=== PATIENT | male | born 1975 | race Caucasian/White ===

== ENCOUNTER 2017-11-03 20:16 | Observation (INO) | payer BC, MEDICAID ==
[2017-11-03] MEDS ORDERED: ASPIRIN 325 MG TABLET PO ONE (20:28)
[2017-11-03] MEDS ORDERED: ASPIRIN 81 MG CHEWABLE TABLET PO ONE (20:32)
[2017-11-03 20:36] LABS: BASO % 0.4 % (0-6); GRAN % 61.8 % (47-80); HEMATOCRIT 40.1 % (42.0-52.0); HEMOGLOBIN 13.7 gm/dl (14.0-18.0); LYMPH % 27.3 % (16-45); MEAN CELL VOLUME 90.9 fl (81-97); MEAN CORPUSCULAR HGB CONC 34.2 g/dl (32-36); MEAN PLATELET VOLUME 9.9 fl (7.4-10.4); MONO % 7.5 % (0-9); PLATELET COUNT 235 K/uL (130-400); RED BLOOD COUNT 4.41 M/uL (4.40-5.70); RED CELL DISTRIBUTION WIDTH 12.6 % (11.5-14.5)
--- NOTE | 2017-11-03 20:39 | Emergency Department Record ---
History of Present Illness - General Chief Complaint: Chest Pain Stated Complaint: CHEST PAIN,LT ARM PAIN Time Seen by Provider: 11/03/17 20:28 Source: Patient Mode of Arrival: Ambulatory Limitations: No limitations - History of Present Illness Initial Comments: 42 yo male presents with presents with episodes of palpitations and chest pain. The initial onset was Friday with heart racing for 3-=45 minutes. Since then he has had a few episodes of substernal chest pain that comes and goes. Lasting about 30 minutes with some left arm radiation. He is currently pain free. He does not have any known histroy of CAD. His dad is still alive but had CABG in his early 40's. The patient is a smoker as well. No other abrupt changes in his health. He does feel some shortness of breath with exertion such as stair climbing but no chest pain with stair climbing. MD Complaint: Chest pain -: Days(s) (4) Onset: During rest Pain Location: Substernal Pain Radiation: LUE Severity: Mild, Moderate Quality: Aching Consistency: Intermittent Improves With: Nothing Worsens With: Nothing Anginal Symptoms: Diaphoresis Treatments Prior to Arrival: None - Related Data Home Medications Medication Instructions Recorded Confirmed Last Taken Citalopram Hydrobromide 40 mg PO DAILY 11/03/17 11/03/17 Unknown [Citalopram HBr] Hydrocodone/Acetaminophen 1 tab PO Q6H PRN 11/03/17 11/03/17 Unknown [Hydrocodone/Acetaminophen 5mg/325mg] Allergies Allergy/AdvReac Type Severity Reaction Status Date / Time No Known Drug Allergies Allergy Verified 11/03/17 20:24 Review of Systems Constitutional: Denies: Chills, Fever, Malaise, Weakness Eyes: Denies: Eye discharge, Eye pain, Photophobia ENT: Denies: Congestion, Throat pain Respiratory: Denies: Cough, Dyspnea, Hemoptysis, Stridor, Wheezes Cardiovascular: Reports: Arrhythmia, Chest pain, Dyspnea on exertion, Palpitations. Denies: Edema, Murmurs, Orthopnea, Paroxysmal nocturnal dyspnea, Rheumatic Fever, Syncope Endocrine: Denies: Fatigue Gastrointestinal: Denies: Abdominal pain, Diarrhea, Nausea, Vomiting Genitourinary: Denies: Dysuria, Frequency, Hematuria Musculoskeletal: Denies: Arthralgia, Back pain, Joint swelling, Myalgia Skin: Denies: Bruising, Change in color, Rash Neurological: Denies: Confusion, Headache, Numbness, Weakness Psychiatric: Denies: Anxiety Hematological/Lymphatic: Denies: Blood Clots, Easy bleeding, Easy bruising, Swollen glands Physical Exam - General General Appearance: Alert, Oriented x3, Cooperative, No acute distress Limitations: No limitations - Head Head exam: Atraumatic, Normocephalic, Normal inspection - Eye Eye exam: Normal appearance. negative: Conjunctival injection, Periorbital swelling, Scleral icterus - ENT ENT exam: Normal exam, Mucous membranes moist Ear exam: Normal external inspection Nasal Exam: Normal inspection Mouth exam: Normal external inspection Teeth exam: Normal inspection - Neck Neck exam: Normal inspection, Full ROM. negative: Tenderness - Respiratory Respiratory exam: Normal lung sounds bilaterally. negative: Respiratory distress - Cardiovascular Cardiovascular Exam: Regular rate, Normal rhythm, Normal heart sounds - GI/Abdominal GI/Abdominal exam: Soft. negative: Tenderness - Rectal Rectal exam: Deferred - exam: Deferred - Extremities Extremities exam: Normal inspection, Full ROM, Normal capillary refill. negative: Pedal edema, Tenderness - Back Back exam: Reports: Normal inspection, Full ROM. Denies: CVA tenderness (R), CVA tenderness (L), Muscle spasm, Rash noted, Tenderness - Neurological Neurological exam: Alert, Normal gait, Oriented X3 - Psychiatric Psychiatric exam: Normal affect, Normal mood. negative: Agitated, Anxious - Skin Skin exam: Dry, Intact, Normal color, Warm Course - Reevaluation(s) Reevaluation #1: 11/03/17 20:29 EKG 20:21 NSR rate is 87, intervals normal, axis no acute changes, ST normal. No old. 11/03/17 20:58 No acute changes on the CBC, CMP, or Troponin. 11/03/17 21:47 The CXR is negative Given his family history, smoking and recurring chest pain since Friday I recommend OBV with serial enzymes and cardiology consultation Medical Decision Making - Lab Data Result diagrams: 11/03/17 20:30 11/03/17 20:30 Disposition Disposition: Admit Clinical Impression: Chest pain Qualifiers: Chest pain type: unspecified Qualified Code(s): R07.9 - Chest pain, unspecified Disposition: Still a Patient at [facility] Decision to Admit: Admit from ER Decision to Admit Date: 11/03/17 Decision to Admit Time: 21:30 Condition: (1) Good Forms: Patient Portal Access Time of Disposition: 21:30 Quality - Quality Measures Quality Measures: N/A - Blood Pressure Screening Does Patient Have Any of the Following: No Blood Pressure Classification: Hypertensive Reading Systolic Measurement: 156 Diastolic Measurement: 94 Screening for High Blood Pressure: < Pre-Hypertensive BP, F/U Documented > [ G8950] Pre-Hypertensive Follow-up Interventions: Referral to alternative/primary care provider.
[2017-11-03 20:48] LABS: INR 0.98; PARTIAL THROMBOPLASTIN TIME 26.8 SECONDS (24.5-39.1); PROTHROMBIN TIME (PATIENT) 10.6 SECONDS (9.5-12.1)
[2017-11-03 20:54] LABS: BLOOD UREA NITROGEN 18 mg/dL (6-20); CREATINE PHOSPHOKINASE 163 U/L (39-308); CREATININE 0.9 mg/dL (0.7-1.2); EST GLOMERULAR FILTRATION RATE > 60 mL/min; GLUCOSE,RANDOM 111 mg/dL (74-109)
[2017-11-03 20:56] LABS: CKMB 1.9 ng/mL (<6.73)
[2017-11-03] MEDS ORDERED: ACETAMINOPHEN 500 MG TABLET PO PRN (23:19)
[2017-11-03] MEDS ORDERED: HYDROCODONE/APAP 5/325MG TABLET PO PRN (23:20)
--- NOTE | 2017-11-04 07:09 | RADIOLOGY REPORT ---
EXAM: CHEST, TWO VIEWS HISTORY: CHEST PAIN. TECHNIQUE: Frontal and lateral views of the chest were obtained. Comparison: None. FINDINGS: The heart size is normal. The lungs are clear. No pneumothorax. IMPRESSION: NEGATIVE CHEST EXAMINATION. JOB NUMBER: [id number] MTDD
--- NOTE | 2017-11-04 08:35 | History & Physical ---
<Cleo Gonzales - Last Filed: 11/04/17 11:09> History of Present Illness - Date of Service Date of Service for History & Physical: 11/04/17 Review of Systems Cardiovascular: Reports: Chest pain, Palpitations Skin: Denies: Change in color H&P Meds/Allergies - Allergies Allergies: Allergies Allergy/AdvReac Type Severity Reaction Status Date / Time No Known Drug Allergies Allergy Verified 11/03/17 20:24 - Home Medications Home Medications Medication Instructions Recorded Confirmed Last Taken Citalopram Hydrobromide 40 mg PO DAILY 11/03/17 11/03/17 Unknown [Citalopram HBr] Hydrocodone/Acetaminophen 1 tab PO Q6H PRN 11/03/17 11/03/17 Unknown [Hydrocodone/Acetaminophen 5mg/325mg] - Active Medications Active Medications: Current Medications Acetaminophen (Tylenol 500mg Tab) 1,000 mg PO Q6H PRN PRN Reason: PAIN/TEMP Hydrocodone Bitart/Acetaminophen (Pemaquid 5mg/325mg) 1 each PO Q6H PRN PRN Reason: Pain - General Enoxaparin Sodium (Lovenox) 40 mg SQ QHS JOANNE Physical Exam - Vital Signs Vital Signs: Vital Signs - Last 24 Hrs Temp Pulse Pulse Pulse Resp BP BP 11/04/17 08:00 97.9 F 60 14 103/67 11/03/17 23:05 70 18 11/03/17 23:00 98.0 F 65 18 129/77 11/03/17 22:50 98.5 F 67 20 131/79 Pulse Ox 11/04/17 08:00 97 11/03/17 23:05 11/03/17 23:00 96 11/03/17 22:50 98 Results - Labs Result Diagrams: 11/03/17 20:30 11/03/17 20:30 Labs Last 24 Hours: Laboratory Results - last 24 hr 11/04/17 06:10 Troponin T < 0.010 - Imaging and Cardiology Chest x-ray Status: Report reviewed (negative) VTE H&P Assessment - Risk for VTE Risk Level: Moderate <Yadi Land - Last Filed: 11/04/17 15:00> History of Present Illness - Date of Service Date of Service for History & Physical: 11/04/17 - History of Present Illness Admitting Diagnosis: Chest Pain History of Present Illness: Abundio is a 42 year-old male who is admitted as observation status for chest pain. His history includes: smoker, chronic back pain, and depression. His father has a history of CAD with CABG in his early 40s. He went to the ED the evening of 11/03/17 because he had been experiencing episodes of palpitations, chest pain, and left arm pain since 10/31/17. He stated that his initial onset was 10/31 with heart racing for about 45 minutes. Over the next two days, he had a few episodes of intermittent substernal chest pain with radiation to his left arm that lasted about 30 minutes. He described the pain as sharp left-sided, substernal, a 10/10 at it' s worst. The pain did occur at rest and he denied shortness of breath. He has had no abrupt changes in his health, no recent illness. In the ED, his vital signs were stable, his CBC, CMP were unremarkable, and his troponin did not show any acute change. His EKG showed NSR with normal ST and his chest x-ray was negative. He was admitted for observation for chest pain, cardiology consult, placed on continuous telemetry and monitoring of serial cardiac enzymes. Cardiology consult was ordered based on pt's symptom of left-sided chest pain, and risk factor of smoking and family history of CAD. 11/04/17: Pt. is resting comfortably in bed. He denies pain at the present time. His vital signs this morning were within normal limits. Plan to continue telemetry monitoring, last troponin ordered for 1400, and cardiology consult. Potential discharge this afternoon. Travel Screening - Travel/Exposure Within Last 30 Days Have you traveled within the last 30 days?: No - Travel/Exposure Within Last Year Have you traveled outside the [place] in the last year?: No - Additonal Travel Details Have you been exposed to anyone with a communicable illness?: No Review of Systems Constitutional: Denies: Chills, Fever, Malaise, Weakness Eyes: Denies: Eye discharge, Eye pain, Photophobia ENT: Denies: Congestion, Throat pain Respiratory: Denies: Cough, Dyspnea, Hemoptysis, Stridor, Wheezes Cardiovascular: Reports: Arrhythmia, Chest pain, Dyspnea on exertion, Palpitations. Denies: Edema, Murmurs, Orthopnea, Paroxysmal nocturnal dyspnea, Rheumatic Fever, Syncope Endocrine: Denies: Fatigue Gastrointestinal: Denies: Abdominal pain, Diarrhea, Nausea, Vomiting Genitourinary: Denies: Dysuria, Frequency, Hematuria Musculoskeletal: Denies: Arthralgia, Back pain, Joint swelling, Myalgia Skin: Denies: Bruising, Change in color, Rash Neurological: Denies: Confusion, Headache, Numbness, Weakness Psychiatric: Denies: Anxiety Hematological/Lymphatic: Denies: Blood Clots, Easy bleeding, Easy bruising, Swollen glands Past Medical History - SOCIAL HISTORY Smoking Status: Current every day smoker Alcohol Use: Occasional Drug Use: None - RESPIRATORY Hx Respiratory Disorders: No - CARDIOVASCULAR Hx Cardio Disorders: No - NEURO Hx Neuro Disorders: No - GI Hx GI Disorders: No - Hx Genitourinary Disorders: No - ENDOCRINE Hx Endocrine Disorders: No - MUSCULOSKELETAL Hx Back Injury: Yes (chronic low back pain) - PSYCH Hx Psych Problems: Yes Hx Depression: Yes - HEMATOLOGY/ONCOLOGY Hx Hematology/Oncology Disorders: No Family Medical History Any Significant Family History?: Yes Hx Cancer: Grandparents Hx Diabetes: Grandparents Hx Heart Disease: Father (CABG) Hx HTN: Father, Mother H&P Meds/Allergies - Active Medications Active Medications: Current Medications Acetaminophen (Tylenol 500mg Tab) 1,000 mg PO Q6H PRN PRN Reason: PAIN/TEMP Hydrocodone Bitart/Acetaminophen ([place]quid 5mg/325mg) 1 each PO Q6H PRN PRN Reason: Pain - General Physical Exam - Vital Signs Vital Signs: Vital Signs - Last 24 Hrs Temp Pulse Pulse Pulse Resp BP BP 11/04/17 08:00 97.9 F 60 14 103/67 11/03/17 23:05 70 18 11/03/17 23:00 98.0 F 65 18 129/77 11/03/17 22:50 98.5 F 67 20 131/79 Pulse Ox 11/04/17 08:00 97 11/03/17 23:05 11/03/17 23:00 96 11/03/17 22:50 98 - General General Appearance: Alert, Oriented x3, Cooperative, No acute distress Limitations: No limitations - Head Head exam: Atraumatic, Normocephalic, Normal inspection - Eye Eye exam: Normal appearance. negative: Conjunctival injection, Periorbital swelling, Scleral icterus - ENT ENT exam: Normal exam, Mucous membranes moist Ear exam: Normal external inspection Nasal Exam: Normal inspection Mouth exam: Normal external inspection Teeth exam: Normal inspection - Neck Neck exam: Normal inspection, Full ROM. negative: Tenderness - Respiratory Respiratory exam: Normal lung sounds bilaterally. negative: Respiratory distress - Cardiovascular Cardiovascular Exam: Regular rate, Normal rhythm, Normal heart sounds Peripheral Pulses: 2+: Radial (R), Radial (L) - GI/Abdominal GI/Abdominal exam: Soft. negative: Tenderness - Rectal Rectal exam: Deferred - exam: Deferred - Extremities Extremities exam: Normal inspection, Full ROM, Normal capillary refill. negative: Pedal edema, Tenderness - Back Back exam: Reports: Normal inspection, Full ROM. Denies: CVA tenderness (R), CVA tenderness (L), Muscle spasm, Rash noted, Tenderness - Neurological Neurological exam: Alert, Normal gait, Oriented X3 - Psychiatric Psychiatric exam: Normal affect, Normal mood. negative: Agitated, Anxious - Skin Skin exam: Dry, Intact, Normal color, Warm Results - Labs Result Diagrams: 11/03/17 20:30 11/03/17 20:30 Labs Last 24 Hours: Laboratory Results - last 24 hr 11/04/17 06:10 Troponin T < 0.010 VTE H&P Assessment - Risk for VTE Risk for VTE: Yes Risk Level: Moderate Risk Assessment Date: 11/04/17 (Smoker) Risk Assessment Time: 08:33 VTE Orders Placed or Will Be Placed: Yes Plan - Detailed Diagnosis and Plan (1) Chest pain Current Visit: Yes Status: Acute Qualifiers: Chest pain type: unspecified Qualified Code(s): R07.9 - Chest pain, unspecified Base Code: R07.9 - CHEST PAIN, UNSPECIFIED Comment: 11/04/17- Pt. currently denies chest pain. Continue telemetry, serial troponins, cardiac diet, saline lock, cardiology consult today. First 2 troponins were within normal range with no change, final troponin ordered for 1400 today. EKG in ED showed NSR with no ST elevation and CXR was negative. CMP and CBC unremarkable. PRN Pemaquid 5/325 PO q6h or Tylenol 1,000mg PO q6h as needed for pain. Plan to discharge today if no acute changes. (2) DVT prophylaxis Current Visit: Yes Status: Acute Base Code: [id number] - Comment: 11/04/17- 40 mg Lovenox SC daily ordered if stay greater than 24 hours. Continue activity as tolerated. (3) Full code status Current Visit: Yes Status: Acute Base Code: Z78.9 - OTHER SPECIFIED HEALTH STATUS Comment: 10/1917- Pt. is full code
--- NOTE | 2017-11-04 15:29 | Discharge Summary ---
Providers Discharge Summary Date: 11/04/17 Date of admission: 11/03/17 22:45 Expected Date of Discharge: 11/04/17 (Pt. left AMA) Attending physician: Andry Shaver Physical Exam - Vital Signs Vital Signs: Vital Signs - Last 24 Hrs Temp Pulse Pulse Pulse Resp BP BP 11/04/17 09:00 93 H 11/04/17 08:00 97.9 F 60 14 103/67 11/03/17 23:05 70 18 11/03/17 23:00 98.0 F 65 18 129/77 11/03/17 22:50 98.5 F 67 20 131/79 Pulse Ox 11/04/17 09:00 11/04/17 08:00 97 11/03/17 23:05 11/03/17 23:00 96 11/03/17 22:50 98 - General General Appearance: Alert, Oriented x3, Cooperative, No acute distress Limitations: No limitations - Head Head exam: Atraumatic, Normocephalic, Normal inspection - Eye Eye exam: Normal appearance. negative: Conjunctival injection, Periorbital swelling, Scleral icterus - ENT ENT exam: Normal exam, Mucous membranes moist Ear exam: Normal external inspection Nasal Exam: Normal inspection Mouth exam: Normal external inspection Teeth exam: Normal inspection - Neck Neck exam: Normal inspection, Full ROM. negative: Tenderness - Respiratory Respiratory exam: Normal lung sounds bilaterally. negative: Respiratory distress - Cardiovascular Cardiovascular Exam: Regular rate, Normal rhythm, Normal heart sounds Peripheral Pulses: 2+: Radial (R), Radial (L) - GI/Abdominal GI/Abdominal exam: Soft. negative: Tenderness - Rectal Rectal exam: Deferred - exam: Deferred - Extremities Extremities exam: Normal inspection, Full ROM, Normal capillary refill. negative: Pedal edema, Tenderness - Back Back exam: Reports: Normal inspection, Full ROM. Denies: CVA tenderness (R), CVA tenderness (L), Muscle spasm, Rash noted, Tenderness - Neurological Neurological exam: Alert, Normal gait, Oriented X3 - Psychiatric Psychiatric exam: Normal affect, Normal mood. negative: Agitated, Anxious - Skin Skin exam: Dry, Intact, Normal color, Warm Hospitalization - Hospitalization Admission Diagnosis: Chest Pain - Problem List/Discharge Diagnosis (1) Chest pain Status: Acute Discharge Diagnosis: Chest pain type: unspecified Qualified Code(s): R07.9 - Chest pain, unspecified Base Code: R07.9 - CHEST PAIN, UNSPECIFIED Comment: 11/04/17- Pt. signed out AMA, he left before provider was able to speak with him. We will contact pt. to see if we can get him set up for an OP cardiology follow up. All 3 troponin enzymes were drawn prior to pt. leaving and did not show any change/elevation. (2) DVT prophylaxis Status: Acute Base Code: [id number] - Comment: 11/04/17- 40 mg Lovenox SC daily ordered if stay greater than 24 hours. Continue activity as tolerated. (3) Full code status Status: Acute Base Code: Z78.9 - OTHER SPECIFIED HEALTH STATUS Comment: 1916- Pt. is full code - Disposition Pt. left AMA prior to cardiology consult. His final troponin lab was completed and did not show any elevation or change. [facility] call to set up outpatient cardiology appointment. - Hospitalization Course Disposition: Against Medical Advice Hospital Course: Abundio is a 42 year-old male who is admitted as observation status for chest pain. His history includes: smoker, chronic back pain, and depression. His father has a history of CAD with CABG in his early 40s. He went to the ED the evening of 11/03/17 because he had been experiencing episodes of palpitations, chest pain, and left arm pain since 10/31/17. He stated that his initial onset was 10/31 with heart racing for about 45 minutes. Over the next two days, he had a few episodes of intermittent substernal chest pain with radiation to his left arm that lasted about 30 minutes. He described the pain as sharp left-sided, substernal, a 10/10 at it' s worst. The pain did occur at rest and he denied shortness of breath. He has had no abrupt changes in his health, no recent illness. In the ED, his vital signs were stable, his CBC, CMP were unremarkable, and his troponin did not show any acute change. His EKG showed NSR with normal ST and his chest x-ray was negative. He was admitted for observation for chest pain, cardiology consult, placed on continuous telemetry and monitoring of serial cardiac enzymes. Cardiology consult was ordered based on pt's symptom of left-sided chest pain, and risk factor of smoking and family history of CAD. 11/04/17 0900: Pt. is resting comfortably in bed. He denies pain at the present time. His vital signs this morning were within normal limits. Plan to continue telemetry monitoring, last troponin ordered for 1400, and cardiology consult. Potential discharge this afternoon. 11/04/17 1500: Pt. left AMA prior to cardiology consult and before provider could see him. Per nursing staff, he left because he was not allowed to go outside to smoke. His last troponin was drawn and did not show any change/ elevation. Plan to call pt. tomorrow and set up outpatient cardiology consult. Condition at Discharge: (1) Good Discharge Diagnosis: Chest Pain VTE Discharge VTE Reason For No Overlap Therapy: Not Indicated (Pt. left AMA prior to starting treatment) Discharge Medications - Discharge Medications Home Medications: Ambulatory Orders Citalopram Hydrobromide [Citalopram HBr] 40 mg PO DAILY 11/03/17 [Last Taken Unknown] Hydrocodone/Acetaminophen [Hydrocodone/Acetaminophen 5mg/325mg] 1 tab PO Q6H PRN 11/03/17 [Last Taken Unknown] Discharge Plan - Discharge Instructions Activity at Discharge: Resume Usual Activities As Tolerated Diet at Discharge: Regular Diet Quality Measures - Quality Measures Quality Measures: Documentation of Current Medications in Medical Record, Screening for High Blood Pressure and F/U Documented - Current Medications Quality Measure: Measure #130: Documentation of Current Medications Documentation of Current Medications: <Current Medications Documented/Reviewed> [G8427] - Blood Pressure Screening Quality Measure: Screening for High Blood Pressure and Follow-Up Documented Does Patient Have Any of the Following: No Blood Pressure Classification: Pre-Hypertensive BP Reading Systolic Measurement: 131 Diastolic Measurement: 79 Screening for High Blood Pressure: < Pre-Hypertensive BP, F/U Documented > [ G8950] Pre-Hypertensive Follow-up Interventions: Referral to alternative/primary care provider. - Elder Abuse Suspicion Index EASI Reference Information: Ej JULES, Ena C, Lyssa D, Inder Quesada.Development and validation of a tool to assist physicians identification of elder abuse: The Elder Abuse Suspicion Index (EASI ). Journal of Elder Abuse and Neglect, 2008; 20 (3): 276-300.
[2017-11-05] MEDS ORDERED: ENOXAPARIN 40 MG/0.4 ML SYR SQ SCH (22:00)
== END 2017-11-04 14:40 | disposition left against medical advice (07) ==
LOC: ER 20:16 → MEDSURG 22:45
PROVIDERS: ADMIT Internal Medicine; ATTEND Internal Medicine
DX: R07.9 Chest pain, unspecified (principal); Z78.9 Other specified health status; F17.210 Nicotine dependence, cigarettes, uncomplicated; M54.9 Dorsalgia, unspecified
CPT/HCPCS: 71020; 80048; 82550; 82553; 84484; 85025; 85610; 85730; 93005; 93010; 99220; 99285

== ENCOUNTER 2018-08-17 22:14 | Emergency (ER) | payer SELFPAY ==
[2018-08-17] MEDS ORDERED: ACETAMINOPHEN 1,000 MG/100 ML BTL IVPB ONE (22:48)
--- NOTE | 2018-08-17 22:53 | Emergency Department Record ---
History of Present Illness - General Chief Complaint: Neck Injury/Pain Stated Complaint: RT SIDE FACE AND NECK PAIN Time Seen by Provider: 08/17/18 22:48 Source: Patient Mode of Arrival: Ambulatory Limitations: No limitations - History of Present Illness Initial Comments: 43 yo male presents to ED for evaluation of right sided pain to the submandibular region that radiates up to the right ear. Patient denies any dental pain, ear pain, fevers, chills, or recent illness. Patient denies trauma to the area, and denies swelling symptoms. Patient reports that his symptoms have been present for 2-3 weeks, worsening. Patient denies health problems other than chronic back pain. MD Complaint: Neck pain Onset/Timin -: Week(s) Place: Home Severity: Moderate Severity scale (1-10): 8 Quality: Aching, Dull Consistency: Constant Improves With: None Worsens With: None Associated Symptoms: None Treatments Prior to Arrival: Prescription pain med - Related Data Allergies Allergy/AdvReac Type Severity Reaction Status Date / Time No Known Drug Allergies Allergy Verified 08/17/18 22:41 Travel Screening - Travel/Exposure Within Last 30 Days Have you traveled within the last 30 days?: No - Travel/Exposure Within Last Year Have you traveled outside the [place] in the last year?: No - Additonal Travel Details Have you been exposed to anyone with a communicable illness?: No - Travel Symptoms Symptom Screening: None Review of Systems Constitutional: Denies: Chills, Fever, Malaise, Night sweats Eyes: Denies: Eye discharge, Eye pain ENT: Denies: Congestion, Ear pain, Epistaxis Respiratory: Denies: Cough, Dyspnea Cardiovascular: Denies: Chest pain, Dyspnea on exertion Endocrine: Denies: Fatigue, Heat or cold intolerance Gastrointestinal: Denies: Abdominal pain, Nausea, Vomiting Genitourinary: Denies: Incontinence, Retention Musculoskeletal: Reports: Neck pain. Denies: Arthralgia, Back pain Skin: Denies: Bruising, Change in color, Change in hair/nails Neurological: Denies: Abnormal gait, Confusion, Headache, Seizure Psychiatric: Denies: Anxiety Hematological/Lymphatic: Denies: Anemia, Blood Clots Past Medical History - SOCIAL HISTORY Smoking Status: Current every day smoker Alcohol Use: Occasional Alcohol Use Comment: once a week Drug Use: None - RESPIRATORY Hx Respiratory Disorders: No - CARDIOVASCULAR Hx Cardio Disorders: No - NEURO Hx Neuro Disorders: No - GI Hx GI Disorders: No - Hx Genitourinary Disorders: No - ENDOCRINE Hx Endocrine Disorders: No - MUSCULOSKELETAL Hx Musculoskeletal Disorders: No Hx Back Injury: Yes (chronic low back pain) - PSYCH Hx Psych Problems: Yes Hx Depression: Yes - HEMATOLOGY/ONCOLOGY Hx Hematology/Oncology Disorders: No Family Medical History Any Significant Family History?: No Hx Cancer: Grandparents Hx Diabetes: Grandparents Hx Heart Disease: Father Hx HTN: Father, Mother Physical Exam - General General Appearance: Alert, Oriented x3, Cooperative, Mild distress Limitations: No limitations - Head Head exam: Atraumatic, Normocephalic, Normal inspection Head exam detail: negative: Abrasion, Contusion, Inman's sign, General tenderness, Hematoma, Laceration - Eye Eye exam: Normal appearance. negative: Conjunctival injection, Periorbital swelling, Periorbital tenderness, Scleral icterus - ENT Ear exam: negative: Auricular hematoma, Auricular trauma Nasal Exam: negative: Active bleeding, Discharge, Dried blood, Foreign body Mouth exam: Tongue normal. negative: Drooling, Laceration, Tongue elevation Throat exam: negative: Tonsillar erythema, Tonsillomegaly, R peritonsillar mass , L peritonsillar mass - Neck Neck exam: Tenderness, Other (TTP right submandibular region on examination, no lymph node present, no STS, no induration, and no clinical signs of infection are present.). negative: Lymphadenopathy, Meningismus - Respiratory Respiratory exam: Normal lung sounds bilaterally. negative: Rales, Respiratory distress, Rhonchi, Stridor - Cardiovascular Cardiovascular Exam: Regular rate, Normal rhythm, Normal heart sounds - GI/Abdominal GI/Abdominal exam: Soft. negative: Rebound, Rigid, Tenderness - Rectal Rectal exam: Deferred - exam: Deferred - Extremities Extremities exam: Normal inspection. negative: Calf tenderness, Pedal edema, Tenderness - Back Back exam: Denies: CVA tenderness (R), CVA tenderness (L) - Neurological Neurological exam: Alert, Normal gait, Oriented X3 - Psychiatric Psychiatric exam: Normal affect, Normal mood - Skin Skin exam: Normal color. negative: Abrasion Type of lesion: negative: abrasion Course Vital Signs 08/17/18 22:38 Temperature 98.7 F Pulse Rate [ 65 Pulse Ox Probe] Respiratory 20 Rate Blood Pressure 141/86 [Left Arm] Pulse Ox 98 - Reevaluation(s) Reevaluation #1: 08/17/18 23:34 Laboratory results reviewed and are grossly unremarkable for an acute process. Reevaluation #2: 08/18/18 00:55 CT Soft-tissue neck: No acute findings identified on examination. Patient was updated on all results, denies chest pain symptoms or SOB. 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 Symptoms do not appear to be cardiac related in etiology, No abnormal physical examination findings are present other than cerumen right EAC. Patient was instructed to follow-up with his PCP in 1-3 days for further evaluation. Medical Decision Making - Lab Data Result diagrams: 08/17/18 23:00 08/17/18 23:00 Disposition Disposition: Discharge Clinical Impression: Neck pain Disposition: Home, Self-Care Condition: (2) Stable Instructions: Neck Pain (ED) Additional Instructions: Return to ED if your symptoms worsen or if you have any concerns. Ibuprofen 600-800 mg as directed needed. Follow-up with your family doctor in 1-3 days as directed for further evaluation of your symptoms. Forms: Patient Portal Access Time of Disposition: 01:03 Quality - Quality Measures Quality Measures: N/A - Blood Pressure Screening Does Patient Have Any of the Following: No Blood Pressure Classification: Pre-Hypertensive BP Reading Systolic Measurement: 122 Diastolic Measurement: 70 Screening for High Blood Pressure: < Pre-Hypertensive BP, F/U Documented > [ [id number]] Pre-Hypertensive Follow-up Interventions: Referral to alternative/primary care provider.
[2018-08-17] MEDS ORDERED: 0.9 % SODIUM CHLORIDE 1000ML 1,000 ML IV SCH (23:00)
[2018-08-17 23:11] LABS: BASO % 0.7 % (0-6); EOS % 4.6 % (0-6); HEMATOCRIT 42.8 % (42.0-52.0); HEMOGLOBIN 14.2 gm/dl (14.0-18.0); LYMPH % 33.3 % (16-45); MEAN CELL VOLUME 92.6 fl (81-97); MEAN CORPUSCULAR HEMOGLOBIN 30.7 pg (27-33); MEAN CORPUSCULAR HGB CONC 33.2 g/dl (32-36); MEAN PLATELET VOLUME 10.4 fl (7.4-10.4); MONO % 5.4 % (0-9); PLATELET COUNT 234 K/uL (130-400); RED BLOOD COUNT 4.62 M/uL (4.40-5.70); RED CELL DISTRIBUTION WIDTH 12.3 % (11.5-14.5); WHITE BLOOD COUNT W/O DIFF 7.2 K/uL (4.2-12.2)
[2018-08-17 23:23] LABS: BLOOD UREA NITROGEN 21 mg/dL (6-20); CREATININE 0.8 mg/dL (0.7-1.2); EST GLOMERULAR FILTRATION RATE > 60 mL/min
[2018-08-17 23:24] LABS: BILIRUBIN,TOTAL < 0.20 mg/dL (0.2-1.0)
[2018-08-17 23:26] LABS: GLUCOSE,RANDOM 98 mg/dL (74-109)
[2018-08-17 23:29] LABS: ALB/GLOB RATIO 1.7 (1.1-1.8); ALBUMIN 4.4 g/dL (4.0-5.0); ALKALINE PHOSPHATASE 73 U/L (40-129); ALT/SGPT 12 U/L (<41); AST/SGOT 15 U/L (10.0-50.0)
== END 2018-08-18 01:12 | disposition home or self-care (01) ==
LOC: ER 22:14
DX: M54.2 Cervicalgia (principal); R68.84 Jaw pain; H61.21 Impacted cerumen, right ear; F17.210 Nicotine dependence, cigarettes, uncomplicated
CPT/HCPCS: 99284 ×2; 96374; 85025; 80053; 70491; Q9967; J7030